=== PATIENT | female | born 2005 | race Caucasian/White ===

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

== ENCOUNTER 2024-01-06 23:16 | Emergency (ER) | payer BC, OTHER ==
[~2024-01-06] VITALS: Ht 165.1 cm; Wt 96.0 kg
[~2024-01-06 23:16] MED LIST changes: +ARMODAFINIL250 MG PO
[2024-01-06 23:55] VITALS: BP 150/94
== END 2024-01-06 23:56 | disposition home or self-care (01) ==
LOC: ED 23:16
DX: S60.022A Contusion of left index finger without damage to nail, initial encounter (principal); W23.0XXA Caught, crushed, jammed, or pinched between moving objects, initial encounter; Z88.6 Allergy status to analgesic agent; Z88.2 Allergy status to sulfonamides; Z88.0 Allergy status to penicillin; Z88.1 Allergy status to other antibiotic agents; Z88.7 Allergy status to serum and vaccine
CPT/HCPCS: 73140; 99283